=== PATIENT | male | born 1980 ===

== ENCOUNTER 2020-04-18 22:59 | Emergency (ER) | payer OTHER ==
[~2020-04-18] VITALS: Ht 177.8 cm; Wt 122.7 kg
[2020-04-19] MEDS ORDERED: PREDNISONE20 MG PO (00:26)
[2020-04-19 00:37] VITALS: BP 108/77; PULSE 86; TEMP 98.1
== END 2020-04-19 00:42 | disposition home or self-care (01) ==
LOC: COL.ER 22:59
DX: R21 Rash and other nonspecific skin eruption (principal)
CPT/HCPCS: J7512

== ENCOUNTER 2022-01-07 12:59 | Emergency (ER) | payer OTHER ==
[~2022-01-07] VITALS: Ht 177.8 cm; Wt 129.5 kg
[~2022-01-07 12:59] MED LIST: PREDNISONE20 MG PO
[2022-01-07 13:29] VITALS: BP 124/88; TEMP 101
[2022-01-07 15:02] VITALS: PULSE 99
== END 2022-01-07 15:03 | disposition home or self-care (01) ==
LOC: COL.ER 12:59
DX: J06.9 Acute upper respiratory infection, unspecified (principal); Z20.822 Contact with and (suspected) exposure to COVID-19
CPT/HCPCS: J1885